=== PATIENT | female | born 1990 | race Caucasian/White ===

== ENCOUNTER → 2020-12-21 14:04 | Outpatient (BNVA) | payer OTHER, SELFPAY | PROVIDERS: Visit Provider Advanced Practice Midwife | DX: N92.6 Irregular menstruation, unspecified (principal); R11.0 Nausea | CPT/HCPCS: 99202 ==

== ENCOUNTER 2020-12-29 13:37 | Outpatient (REF) | payer OTHER, SELFPAY ==
--- NOTE | ~2020-12-29 | US_ITS ---
EXAMINATION: OBSTETRICAL ULTRASOUND, FIRST TRIMESTER HISTORY: 30-year-old with irregular menses LMP: 09/15/2020 COMPARISON: None TECHNIQUE: Real time transabdominal imaging with color and M-mode Doppler. FINDINGS: A single, live IUP CRL of 36.3 mm c/w 10.4wks is noted. Heart Rate: 188 beats per minute. Right ovary is within normal limits. Left ovary was not seen. GESTATIONAL AGE: 1. GA from LMP: 15.0 wks 2. GA from AUA: 10.4 wks ESTIMATED DATE OF DELIVERY: 1. MITCHEL from LMP: 06/22/2021 2. MITCHEL from AUA: 07/23/2021 US/US OB <= 14 weeks fetus IMPRESSION: 1. A single live IUP 2. Size less than dates, CRL corresponds to 10.4 weeks. 3. Adjust 08/23/2017 based on today's examination. Thank you very much for this referral. This note was generated with a voice recognition program. Please excuse any errors which may have been overlooked during my review of this note. Sometimes these errors may affect the content or meaning of a given sentence.
== END 2020-12-29 13:38 | disposition home or self-care (01) ==
LOC: HO.US 13:37
PROVIDERS: PCP Internal Medicine; Visit Provider Advanced Practice Midwife
DX: Z34.91 Encounter for supervision of normal pregnancy, unspecified, first trimester (principal)
CPT/HCPCS: 76801

== ENCOUNTER → 2021-01-12 09:37 | Outpatient (BNVA) | payer OTHER, SELFPAY | PROVIDERS: PCP Internal Medicine; Visit Provider Advanced Practice Midwife ==

== ENCOUNTER 2021-01-12 12:28 | Outpatient (REF) | payer OTHER, SELFPAY ==
--- NOTE | ~2021-01-12 | US_ITS ---
EXAMINATION: OBSTETRICAL ULTRASOUND, FIRST TRIMESTER HISTORY: 30-year-old at 12.4 weeks of gestation NT screening COMPARISON: 12/29/2020 TECHNIQUE: Real time transabdominal imaging with color and M-mode Doppler. FINDINGS: A single, live IUP CRL of 65.0 mm c/w 12.6wks is noted. Heart Rate: 167 beats per minute. Normal yolk sac seen. NT was 1.23.mm. NB Present The embryo appears sonographically wnl for this GA. Both maternal ovaries are seen and appear normal. GESTATIONAL AGE: 1. Established GA: 12.4 wks 2. GA from AUA: 12.6 wks ESTIMATED DATE OF DELIVERY: 1. Established MITCHEL: 07/23/2021 2. MITCHEL from AUA: 07/21/2021 US/US OB 1T nuc measure IMPRESSION: A single live IUP Size equals dates NT of 1.23 mm MFM Consultation: I reviewed the ultrasound findings along with significance of NT measurement. The NT of less than 3mm is generally reassuring. However, the sensitivity for T21 detection is only 60%. I reviewed the availability of serum aneuploidy screening which includes cell-free DNA and placental protein based tests. I discussed the sensitivity, false-positive rate, and other limitations associated with each test. I also reviewed the availability of invasive diagnostic tests that are associated small but definite risk of miscarriage. We also reviewed the differences between screening tests and diagnostic tests. After our discussion, she opted for the First trimester screening that is based on cell-free DNA or non-invasive testing (NIPT). The result will be faxed to your office in approximately 7 days. A follow up at 18 weeks for survey has been scheduled. Thank you very much for this referral. Total time 30 minutes. The time spent was devoted to counseling the patient about the disease and diagnosis, coordinating care including reviewing her records, pertinent lab data and studies, as well as discussing diagnostic evaluation and workup, plan therapeutic interventions and future disposition of care. This includes any additional research needed to obtain further information in formulating the plan of care of this patient. This note was generated with a voice recognition program. Please excuse any errors which may have been overlooked during my review of this note. Sometimes these errors may affect the content or meaning of a given sentence.
== END 2021-01-12 12:29 | disposition home or self-care (01) ==
LOC: HO.US 12:28
PROVIDERS: PCP Internal Medicine; Visit Provider Advanced Practice Midwife
DX: Z34.90 Encounter for supervision of normal pregnancy, unspecified, unspecified trimester (principal); Z36.82 Encounter for antenatal screening for nuchal translucency
CPT/HCPCS: 76813

== ENCOUNTER 2021-08-11 19:58 | Emergency (ER) | payer OTHER, SELFPAY ==
[2021-08-11 21:07] VITALS: BP 137/78; PULSE 92; RESP 16; TEMP 36.6; O2SAT 99; BMI 48.6
[2021-08-11 21:37] LABS: COVID-19 Test Positive (Negative)
--- NOTE | 2021-08-11 21:51 | ED_ITS ---
HPI - General Adult General Chief complaint: General Medical Stated complaint: COVID swab Time Seen by Provider: 08/11/21 21:41 Source: patient Mode of arrival: ambulatory Limitations: no limitations History of Present Illness HPI narrative: 31-year-old female who presents emergency department for evaluation exposure to COVID-19 infection. The patient is here in the emergency department with her 1 month 5-day-old son who was evaluated for a favor and found to be COVID positive. The patient has a 7-year-old and a 10-year-old at home and her 10-year-old son is COVID positive. The patient is times approximately 5 weeks. She had no complications during the but during the delivery she had preeclampsia with a difficult labor require secondary to heart rate deceleration of the baby. Patient states she spent 1 week in the hospital. The patient is not vaccinated for COVID-19. She denied fever, chills, chest pain, shortness of breath, cough, fatigue, nausea, vomiting, diarrhea, myalgias arthralgias. Related Data Previous Rx's Medication Instructions Recorded vitamin with calcium 1 tab PO DAILY #30 tab 12/21/20 no.72-iron 27 mg-folic acid 1 mg tablet ( Vitamins Plus Low Iron) Allergies Allergy/AdvReac Type Severity Reaction Status Date / Time No Known Allergies Allergy Verified 12/21/20 14:29 [No Known Allergies*] Review of Systems Review of Systems: Yes all other systems are reviewed and are negative [facility] Past Medical History [facility] Narrative: Past medical history: None. Past surgical history: 5 weeks prior, preeclampsia. Social history: Patient is a former smoker, she stop smoking when she found out she was and has not smoked in over [address] [facility]. She denies alcohol use. She denies drug use. Surgical History Hx of dilation and curettage Hx of wisdom tooth extraction Social History Social History Alcohol intake: never Patient Tobacco Use Status: Former Tobacco user Advance Directives: No Patient : No Gender identity: Female Physical Exam Vital Signs: Vital Signs: Last Vital Signs Temp 97.9 F 08/11/21 21:07 Pulse 92 08/11/21 21:07 Resp 16 08/11/21 21:07 BP 137/78 08/11/21 21:07 Pulse Ox 99 08/11/21 21:07 BMI result Body Mass Index 48.6 Const: General: cooperative and no acute distress Orientation/consciousness: oriented to person and oriented to place Limitations: no limitations HENMT: Head: Yes normal to inspection, Yes normocephalic and Yes atraumatic Ears: external ears normal General nose exam: Normal external nose present Face and sinus: Yes normal facial exam Mouth: Normal oral and palatal mucosa present Throat: Yes posterior oropharynx normal Eyes: General: appearance normal, both eyes and all related structures Pupils: Equal, round and reactive pupils present Neck: Neck: Yes normal visual inspection, Yes no lymphadenopathy, Yes trachea midline and Yes supple Chest: Chest palpation & inspection: normal inspection of the chest and normal palpation of entire chest wall Resp: Effort & Inspection: normal respiratory effort and able to speak in complete sentences Auscultation: clear to auscultation bilaterally Cardio: Rate: regular rate Rhythm: regular rhythm Heart sounds: S1 n ormal heart sound present, S2 normal heart sound present and no murmurs GI: Inspection: Yes normal to inspection Palpation (GI): Soft to palpation, nontender and no guarding Auscultation: normal bowel sounds : General: Yes no CVA tenderness Back/Spine/Pelvis: Back: no CVA tenderness Skin: General skin exam: no rashes or lesions noted Neuro: General: oriented to person and oriented to place Cranial nerves: Yes CN's II-XII intact bilaterally and Yes Equal, round and reactive pupils present Cognition (Neuro): normal cognition Motor exam (neuro): 5/5 motor strength present throughout Extrem: General: Yes normal to inspection Psych: Appearance: grossly normal Speech and movement: Normal speech and movement present Affect: normal affect Attitude: cooperative Thought process: Normal thought process present Thought content: Normal thought content present Course Course Course Narrative: 31-year-old female , x5 weeks with 5 weeks prior and preeclampsia 5 weeks prior who presents emergency department for evaluation of COVID exposure. The patient is asymptomatic. The patient's physical examination was unremarkable in her O2 saturation was 99% on room air. The patient's COVID-19 test positive. I did discuss this with her. She was discharged home with printed and verbal instructions. Medical Decision Making Lab Data Labs: Lab Results 08/11/21 Range/Units 21:22 COVID-19 ([facility]UD[facility]) Positive A (Negative) COVID-19 Clin Com See Note Discharge Plan Discharge Clinical Impression: COVID-19 virus infection Patient Disposition: Home, Self-Care Instructions: COVID-19 (Coronavirus Disease 2019) (ED) Additional Instructions: Your vital signs today revealed a normal O2 saturation of 99% % on room air which is normal (92% to 100% is the normal range). We do not hospitalize people with a COVID-19 infection unless your O2 saturation drops below 90% and you have evidence for pneumonia on your chest x-ray. COVID-19 infection is a very bad viral infection and is causing all of your symptoms The symptoms that we normally see with a COVID-19 infection include sore throat, runny nose, chest pain, shortness of breath, shortness of breath with exertion, muscle aches, muscle pains, nausea, vomiting , diarrhea, loss of sense of taste or smell. You do not need to have all of the symptoms. Take ibuprofen 200 mg pills,2 pills every 6 hours as needed for pain and fever Take Tylenol (acetaminophen) 500 mg pills, 2 pills every 4 to 6 hours as needed for pain and fever. Based on your evaluation today, it is okay to send you home. Please plan for self quarantine for up to 14 days. Do not expose yourself to others. You may not go to work. Please continue to wear a mask, follow COVID-19 printed discharge instructions and wash your hands frequently. Please return to the emergency department if your symptoms pneumonia which would include worsening of your symptoms especially chest pain the breathing, shortness of breath at rest, shortness of breath with moving around her exerting herself, severe weakness, or if you develop any symptoms that are concerning to you. Prescriptions: No Action Vitamin Plus Low Iron 27 mg iron- 1 mg tablet 1 tab PO DAILY Qty: 30 RF: 11 Interventions: ED Discharge Assessment Last Done: 08/11/21 22:05 Discharge Date/Time: 08/11/21 22:06
== END 2021-08-11 22:06 | disposition home or self-care (01) ==
PROVIDERS: Emergency Provider Emergency Medicine Emergency Medical Services
DX: U07.1 COVID-19 (principal)
CPT/HCPCS: 87635; 99283